=== PATIENT | male | born 1965 | race Caucasian/White ===

== ENCOUNTER 2019-08-30 20:54 | Inpatient (IN) | payer OTHER ==
[~2019-08-30] VITALS: Ht 167.6 cm; Wt 105.7 kg
[2019-08-30 22:09] VITALS: BP 123/68
[2019-08-30] MEDS ORDERED: ASA81BEC PO (22:50)
[2019-08-30] MEDS ORDERED: LIPITOR 20 MG T20 M1 PO (22:50)
[2019-08-30] MEDS ORDERED: VITAMIN B-121000 MC2 SUBQ (22:52)
[2019-08-30] MEDS ORDERED: NEXIUM40 MG PO (22:53)
[2019-08-30] MEDS ORDERED: FOLIC ACID1 MG PO (22:53)
[2019-08-30] MEDS ORDERED: FUROSEMIDE 40 M40 MG PO (22:54)
[2019-08-30] MEDS ORDERED: LATUDA20 MG PO (22:55)
[2019-08-30] MEDS ORDERED: LISINOPRIL-HCT1 EACH PO (22:58)
[2019-08-30] MEDS ORDERED: MOBIC7.5 MG PO (22:59)
[2019-08-30] MEDS ORDERED: METFORMIN HCL500 M3 PO (23:02)
[2019-08-30] MEDS ORDERED: SINGULAIR 10 MG10 MG PO (23:03)
[2019-08-30] MEDS ORDERED: TRAMADOL 50 MG50 MG PO (23:04)
[2019-08-30] MEDS ORDERED: VITAMIN D250000 UNIT PO (23:04)
[2019-08-30] MEDS ORDERED: FLONASE 0.05%50 MCG NASAL (23:05)
[2019-08-30] MEDS ORDERED: VENTOLIN HFA 1818 GM INH (23:06)
[2019-08-30] MEDS ORDERED: SYMBICORT80 MCG/4.1 INH (23:06)
[2019-08-30] MEDS ORDERED: BACTRIM DS TAB1 EAC1 PO (23:11)
[2019-08-31 00:29] VITALS: BP 112/58
--- NOTE | 2019-08-31 01:24 | NUR ---
Admission history and assessments completed. Care plan initiated.
[2019-08-31 02:30] LABS: ICTOTEST (BILI CONFIRMATORY) Positive (Negative); URINE BILIRUBIN 1+ (Negative); URINE BLOOD NEGATIVE (Negative); URINE CLARITY CLEAR; URINE COLOR YELLOW; URINE GLUCOSE-RANDOM* NEGATIVE (Negative); URINE KETONES NEGATIVE (Negative); URINE LEUKOCYTES-REFLEX NEGATIVE (Negative); URINE NITRITE-REFLEX NEGATIVE (Negative); URINE PROTEIN (DIPSTICK) 1+ (Negative); URINE SPECIFIC GRAVITY >= 1.030 (1.005-1.035); URINE UROBILINOGEN 0.2 E.U./dl (0.2-1.0)
[2019-08-31 02:50] LABS: HYALINE CASTS 0-3 Few /LPF (None Seen); MUCUS 4-6 Moderate strn/LPF (None Seen); SQUAMOUS >10 Many /LPF (0-3); URINE WBC-REFLEX None Seen /HPF (0-5)
[2019-08-31 02:51] LABS: BACTERIA-REFLEX 1-9 Few /HPF (None Seen); CRYSTALS None Seen /LPF (None Seen); URIC ACID CRYSTALS 0-3 Few /LPF (None Seen); URINE RBC 0-2 Rare /HPF (0-2)
[2019-08-31 04:05] VITALS: BP 110/62
[2019-08-31 04:49] LABS: HEMATOCRIT 35.2 % (42.0-52.0); HEMOGLOBIN 11.9 gm/dL (14.0-18.0); MCHC 33.7 g/dL (28.0-37.0); MCV 89.1 fL (80.0-100.0); RBC 3.95 mil/uL (4.50-6.00); RDW 13.6 % (10.5-14.5); WBC 6.7 thou/uL (4.0-11.0)
[2019-08-31 05:13] LABS: ANION GAP 13 mmol/L (7-16); BUN 34 mg/dL (7-18); CALCIUM 6.3 mg/dL (8.5-10.1); CHLORIDE 108 mmol/L (98-107); CHOLESTEROL 58 mg/dL (<200); CO2 18 mmol/L (21-32); CREATININE 3.7 mg/dL (0.7-1.3); GLUCOSE 108 mg/dL (74-106); HDL CHOLESTEROL 16 mg/dL (>40); LDL CHOLESTEROL 25 mg/dL (<100); POTASSIUM 3.1 mmol/L (3.5-5.1); SODIUM 139 mmol/L (136-145); TC:HDL 3.6 Ratio (Not establshd); TRIGLYCERIDE 89 mg/dL (<150); VLDL 18 mg/dL (<40)
[2019-08-31 05:14] LABS: SERUM ASSESSMENT Clear
--- NOTE | 2019-08-31 05:31 | NUR ---
Patient making slow progress towards outcome goals. Labs slowly improving. Urine output 1000 cc since admission, urine color improving from anamika to yellow. Chest pain resolved after Ultram. Troponin negative. Vital signs and rhythm stable. For renal, cardiology and GI consult today. No BM since admission.
[2019-08-31 08:24] VITALS: BP 119/73
--- NOTE | 2019-08-31 08:48 | NUR ---
PT ASSESSED BY DR. GRANADO AT BEDSIDE. PT DENIES CP OR SOA AT THIS TIME. WILL CONTINUE TO ASSESS.
--- NOTE | 2019-08-31 10:24 | EKG ---
[address] [address] ELECTROCARDIOGRAM REPORT Name: CHERYL COVARRUBIASEFFIE James Room #: 364-P ADM IN M.R.#: [id number] Admission: 08/30/19 Attend Phys: Robbie Bella MD Discharge: Date of : 65 Report #: [id number] THIS REPORT FOR: //name// [facility] Test Date: 2019-08-31 Test Time: 07:13:28 Pat Name: MARGARET COVARRUBIAS Department: Room: 364 P Gender: M [employer] Grinder: Monalisa PATHAK : 1965 Requested By: Rena Jarrell Order Number: [id number] MD: Jean-Paul Gan Measurements Intervals Lyons Rate: 92 P: 48 RI: 153 QRS: 26 QRSD: 96 T: 53 QT: 361 QTc: 447 Interpretive Statements Sinus rhythm No previous ECG available for comparison Electronically Signed On 08-31-2019 10:24:04 [employer]ETER [employer] by Jean-Paul Gan [email or web address] <ELECTRONICALLY SIGNED> By: Jean-Paul Gan MD 08/31/19 1024 0713 0713 Jean-Paul Gan MD /EPI
[2019-08-31 11:38] VITALS: BP 38/83
[2019-08-31 16:15] VITALS: BP 122/68
[2019-08-31 21:00] VITALS: BP 130/78
[2019-09-01 03:05] LABS: GLYCOHEMOGLOBIN (HGB A1C) 5.7 % (4.8-5.6)
--- NOTE | 2019-09-01 03:42 | NUR ---
Patient making slow progress towards outcome goals. Urine output improving. Labs improving. Vital signs any rhythm stable. No c/o chestpain. NPO after MN for nuclear stress test today. IVFluids infusing.
[2019-09-01 05:10] VITALS: BP 122/70
[2019-09-01 05:21] LABS: ALBUMIN 3.4 g/dL (3.4-5.0); PHOSPHORUS 2.1 mg/dL (2.5-4.9)
[2019-09-01 05:33] LABS: CREATININE 1.3 mg/dL (0.7-1.3); POTASSIUM 4.4 mmol/L (3.5-5.1)
[2019-09-01 05:34] LABS: CALCIUM 8.7 mg/dL (8.5-10.1)
[2019-09-01 07:46] VITALS: BP 142/84
--- NOTE | 2019-09-01 08:01 | HC ---
[facility] [address] [place] [address] CONSULTATION Name: MARGARET COVARRUBIAS Room #: 364-P [facility] IN ..#: [id number] Admission: 08/30/19 Attend Phys: Hardeep Morris MD Discharge: Date of : 65 Report #: [id number] THIS REPORT FOR: //name// CC: FAM unknown Robbie Bella DATE OF SERVICE: 08/31/2019 INDICATION: Chest pain. HISTORY OF PRESENT ILLNESS: This is a 53-year-old gentleman with a history of chronic tobacco use, COPD, hypertension, diabetes mellitus, congestive heart failure, peripheral neuropathy, and chronic back pains, presenting with nausea, diarrhea and chest pain. For the past few days, he has been experiencing abdominal pain with associated vomiting and diarrhea. He presented to the ER for an evaluation at [facility], noted to have a creatinine level 6.35. He was transferred to [facility] for further care. He reported an episode of left sternal chest discomfort last evening, nonradiating. It was not associated with any shortness of breath. The whole episode lasted for approximately one hour in duration. There were no alleviating or aggravating factors. He denies any history of palpitations, lightheadedness or orthopnea. PAST MEDICAL HISTORY: 1. Chronic tobacco use. 2. COPD. 3. Prior history of CHF on Lasix therapy. 4. Diabetes mellitus. 5. Hypertension. 6. Hypercholesterolemia. 7. Bipolar disorder. 8. Peripheral vascular disease. 9. Chronic back pains. ALLERGIES: None. MEDICATIONS: At home include aspirin once a day, Lipitor 20 mg daily, Nexium, Lasix 40 mg daily, lisinopril 10 mg daily, Mobic twice a day and metformin. SOCIAL HISTORY: Chronic tobacco use, 1 pack per day. FAMILY HISTORY: Negative for premature CAD. REVIEW OF SYSTEMS: A full 10-point review of systems performed. Only the pertinent positives and negatives are described in the HPI. [address] [address] CONSULTATION Name: MARGARET COVARRUBIAS Room #: 364-[facility] IN [facility].#: [id number] Admission: 08/30/19 Attend Phys: Hardeep Morris MD Discharge: Date of : 65 Report #: [id number] PHYSICAL EXAMINATION: VITAL SIGNS: Blood pressure is 120/70, heart rate is 100 beats per minute. GENERAL APPEARANCE: A mildly overweight male in no acute distress. HEENT: Normocephalic, atraumatic. Oral mucosa moist. NECK: Supple. LUNGS: Clear to auscultation. CARDIAC: Regular rate and rhythm. S1, S2 positive. ABDOMEN: Soft, nontender. EXTREMITIES: No cyanosis, trace edema. DIAGNOSTIC DATA: ECG reveals sinus rhythm. LABORATORY VALUES: Troponin levels are negative. Initial creatinine was 6.35, down to 3.7, hemoglobin is 11.9. ASSESSMENT AND PLAN: 1. Chest pain syndrome, the differential diagnosis includes ischemia, musculoskeletal, GI, etc. Given his significant risk factors, we will need to proceed with noninvasive stress testing. 2. Dyspnea on exertion, probably related to chronic obstructive pulmonary disease and chronic tobacco use. We will need an echo to rule out structural heart disease. 3. Acute kidney injury, as per Nephrology, probably related to prerenal and NSAID use. 4. Hypertension, follow up blood pressure at this time. Avoid ISSAC inhibitor in view of acute kidney injury. 5. Diabetes mellitus, check fingersticks. 6. Tobacco use, complete smoking cessation is advised. <ELECTRONICALLY SIGNED> By: Jean-Paul Gan MD 09/01/19 0801 0855 1100 Jean-Paul Gan MD /nt
--- NOTE | 2019-09-01 10:27 | 2DMMODE ---
[facility] [address] [place] [address] 2 D/M-MODE ECHOCARDIOGRAM Name: MARGARET COVARRUIBAS Room #: 364-P [facility] IN [facility]#: [id number] Admission: 08/30/19 Attend Phys: Hardeep Morris MD Discharge: Date of : 65 Report #: [id number] THIS REPORT FOR: //name// APPROVED REPORT Study performed: 09/01/2019 09:31:34 EXAM: Comprehensive 2D, Doppler, and color-flow Echocardiogram Patient Location: Echo lab Room #: 364 Status: routine BSA: 2.13 HR: 110 bpm BP: 142/84 mmHg Rhythm: Tachycardia Other Information Study Quality: Adequate Indications Congestive Heart Failure COPD Diabetes Hypertension/HDD HLD 2D Dimensions RVDd: 41.23 mm IVSd: 14.33 (7-11mm) LVOT Diam: 20.89 (18-24mm) LVDd: 42.67 mm PWd: 13.48 (7-11mm) Ascending Ao: 29.32 (22-36mm) LVDs: 30.05 (25-40mm) Aortic Root: 32.74 mm IVC: 20.00 mm Volumes Left Atrial Volume (Systole) Single Plane 4CH: 61.14 mL Single Plane 2CH: 74.77 mL LA ESV Index: 34.00 mL/m2 Aortic Valve AoV Peak Guille.: 1.71 m/s AO Peak Gr.: 11.70 mmHg LVOT Max P.05 mmHg LVOT Max V: 1.50 m/s SANJAY Vmax: 3.01 cm2 [facility] [address] [place] [address] 2 D/M-MODE ECHOCARDIOGRAM Name: MARGARET COVARRUBIAS Room #: 364-P [facility]#: [id number] Admission: 08/30/19 Attend Phys: Hardeep Morris MD Discharge: Date of : 65 Report #: [id number] Mitral Valve E/A Ratio: 0.8 MV Decel. Time: 201.22 ms MV E Max Guille.: 1.25 m/s MV A Guille.: 1.49 m/s MV PHT: 58.35 ms IVRT: 69.20 ms Pulmonary Valve PV Peak Guille.: 1.50 m/s PV Peak Gr.: 9.07 mmHg Pulmonary Vein P Vein S: 0.94 m/s P Vein A: 0.41 m/s P Vein D: 0.56 m/s P Vein A Dur.: 66.9 msec P Vein S/D Ratio: 1.68 Tricuspid Valve TR Peak Guille.: 3.32 m/s RAP Estimate: 5.00 mmHg TR Peak Gr.: 44.04 mmHg PA Pressure: 49.00 mmHg Left Ventricle The left ventricle is normal size. Mild concentric left ventricular hypertrophy. The left ventricular systolic function is normal. The left ventricular ejection fraction is within the normal range. LVEF is 60-65%. Mild diastolic dysfunction is present (impaired relaxation pattern). Right Ventricle Right ventricle is at the upper limits of normal. The right ventricular systolic function is normal. Atria The left atrium size is normal. Right atrium is mildly dilated. Aortic Valve The aortic valve is normal in structure. No aortic regurgitation is present. There is no aortic valvular stenosis. Mitral Valve The mitral valve is normal in structure. Trace mitral regurgitation. No evidence of mitral valve stenosis. Tricuspid Valve The tricuspid valve is normal in structure. Trace to mild tricuspid [facility] [address] [place] [address] 2 D/M-MODE ECHOCARDIOGRAM Name: MARGARET COVARRUBIAS Erika Room #: 364-P [facility] IN [facility]#: [id number] Admission: 08/30/19 Attend Phys: Hardeep Morris MD Discharge: Date of : 65 Report #: [id number] regurgitation. PAP is estimated at 49 mmHg. Pulmonic Valve The pulmonary valve is normal in structure. There is no pulmonic valvular regurgitation. Great Vessels The aortic root is normal in size. IVC is normal in size and collapses >50% with inspiration. Pericardium There is no pericardial effusion. <Conclusion> The left ventricle is normal size. Mild concentric left ventricular hypertrophy. The left ventricular systolic function is normal. Mild diastolic dysfunction is present (impaired relaxation pattern). Right ventricle is at the upper limits of normal. The left atrium size is normal. The aortic valve is normal in structure. Trace mitral regurgitation. Trace to mild tricuspid regurgitation. PAP is estimated at 49 mmHg. <ELECTRONICALLY SIGNED> By: Jean-Paul Gan MD 09/01/19 1027 1027 1027 Jean-Paul Gan MD /INF
[2019-09-01 12:06] VITALS: BP 160/83
--- NOTE | 2019-09-01 12:36 | NUR ---
INITIAL ASSESSMENT: Received consult. SW reviewed chart and spoke with nursing and attending physician. Pt was admitted from home due to BRAD/nausea and vomiting. GI and cardio consulted. Pt currently off the unit having a nuclear stress test. SW met with pt s at bedside. Introduced role of SW. Pt is normally alert/orientated x 4. Pt and live at home [facility]. Prior to admission, pt was independent with ADLs. No use of DME. No hx of service or post acute placement. Pt s PCP is SHARIF Howell in [place]. Plan is for pt to dc home when medically stable. No SW discharge needs identified at this this, but is available to assist should needs arise.
[2019-09-01 15:59] VITALS: BP 135/84
--- NOTE | 2019-09-01 17:17 | NUR ---
pt is A&OX3, PT is continuing iv fliud and bs management, pt's vs and bs are stable, pt does not have n/v and diarrhea today.
[2019-09-01 20:05] VITALS: BP 150/91
[2019-09-02 03:46] VITALS: BP 152/84
[2019-09-02 05:14] LABS: HEMATOCRIT 38.3 % (42.0-52.0); HEMOGLOBIN 12.8 gm/dL (14.0-18.0); MCH 30.1 pg (26.0-34.0); MCHC 33.3 g/dL (28.0-37.0); MCV 90.4 fL (80.0-100.0); RBC 4.24 mil/uL (4.50-6.00); RDW 13.7 % (10.5-14.5); WBC 9.4 thou/uL (4.0-11.0)
[2019-09-02 05:22] LABS: ALBUMIN 3.4 g/dL (3.4-5.0); CALCIUM 8.8 mg/dL (8.5-10.1); CREATININE 0.8 mg/dL (0.7-1.3); PHOSPHORUS 2.5 mg/dL (2.5-4.9); POTASSIUM 4.2 mmol/L (3.5-5.1)
--- NOTE | 2019-09-02 06:23 | NUR ---
Pt. stated he slept well during the night. Tolerating room air well. Denies any pain. No nausea,vomiting or diarrhea. Pt. is scheduled for 2nd part of stress test today. IV fluids infusing.Voiding well per urinal. Making progress towards care plan goals.
--- NOTE | 2019-09-02 06:24 | HC ---
[facility] [address] [place] [address] CONSULTATION Name: MARGARET COVARRUBIAS Room #: 364-P ADM IN ..#: [id number] Admission: 08/30/19 Attend Phys: Hardeep Morris MD Discharge: Date of : 65 Report #: [id number] THIS REPORT FOR: //name// CC: FAM unknown Robbie Bella REASON FOR PRESENTATION: Nausea and vomiting. REASON FOR CONSULTATION: Acute kidney injury. HISTORY OF PRESENT ILLNESS: A 53 year old with past medical history of diabetes mellitus who is maintained on metformin. He is also known to have chronic back pain, hyperlipidemia, COPD. It does look like that he also carries a bipolar disorder and was recently started on Latuda. The patient was evaluated by his primary care physician on 4th of this month and was started on Bactrim for urinary tract infection. He presented reporting that he has been having some nausea and vomiting for the last few days. He visited with his primary care physician as stated above. He was also evaluated at [facility] and was found to have a creatinine of 6.3. BUN was 43. Sodium was 143. The patient also admits to daily intake of Aleve, daily intake of meloxicam. He does not have any obstructive symptoms. No reported chest pain or palpitation. He did have some fever and chills. No reported hematemesis or melena. No previous similar episodes. No abdominal pain. MEDICATIONS: 1. Aspirin. 2. Lasix. 3. Latuda. 4. Lisinopril. 5. Metformin. 6. Aleve. 7. Sulfamethoxazole and trimethoprim. 8. Meloxicam. 9. Albuterol. PAST MEDICAL HISTORY: 1. Bipolar disorder. 2. Tobacco abuse. 3. Diabetes mellitus. 4. Thyroid gland problems. 5. Appendectomy. 6. Cholecystectomy. 7. Vitamin B12 deficiency. FAMILY HISTORY: His mother has diabetes mellitus and heart failure. SOCIAL HISTORY: Denies drug or alcohol abuse. He continues to smoke. He is [facility] [address] [place] [address] CONSULTATION Name: MARGARET COVARRUBIAS Room #: 364-P [facility] IN [facility].#: [id number] Admission: 08/30/19 Attend Phys: Hardeep Morris MD Discharge: Date of : 65 Report #: [id number]. REVIEW OF SYSTEMS: GENERAL: Significant for weakness, fever or chills. CARDIOVASCULAR: No chest pain or palpitation. PULMONARY: No cough or hemoptysis. GASTROINTESTINAL: As per the history of present illness. GENITOURINARY: No frequency, no urgency. SKIN: No rash or ulcerations. NEUROLOGICAL: Significant for weakness, but no seizure. 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 HEMATOLOGICAL: No epistaxis. No bruises. PHYSICAL EXAMINATION: GENERAL: He is alert, oriented, in no apparent distress. VITAL SIGNS: Blood pressure is 110/62, temperature is 36.8. HEAD AND NECK: No jugular venous distention. CHEST: Clear to auscultation bilaterally with no crackles. CARDIOVASCULAR: Regular S1, S2 with no rub detected. No murmurs. ABDOMEN: Soft, protuberant. No guarding, no rigidity. Active bowel sounds. LOWER EXTREMITIES: No edema with intact peripheral pulses. LABORATORY DATA: From today and from his [facility] were reviewed. Creatinine is now down to 3.7. Potassium is 3.1, carbon dioxide is 18. IMPRESSION AND PLAN: 1. Acute kidney injury due to Bactrim, Aleve, meloxicam. 2. Hypokalemia. 3. Diabetes mellitus. 4. Hypertension. 5. This is all related to the above-mentioned medication. Creatinine seems to be improving. Continue with IV fluid. 6. Continue to hold all of the above-mentioned medications including metformin. 7. Expect his kidney function to continue to improve to baseline. <ELECTRONICALLY SIGNED> By: Deann Betancourt MD 09/02/19 0624 0636 0743 Deann Betancourt MD /nt
[2019-09-02 08:09] VITALS: BP 145/86
[2019-09-02 11:18] VITALS: BP 125/97
[2019-09-02 13:50] VITALS: BP 125/97
--- NOTE | 2019-09-02 14:24 | NUR ---
DISCHARGE NOTE: SW reviewed chart and spoke with nursing and attending physician. Pt had part 2 of stress test and is medically stable for discharge home. No discharge needs identified. Pt's family will provide transportation home. No additional SW needs identified at this time, but is available to assist should needs arise.
--- NOTE | 2019-09-02 15:39 | NUR ---
pt is A&OX3, PT's vs and o2sat are stable, pt denies pain, n/v , diarrhea and sob, PT has meeting care plan goals, PT d/c to home at 1420pm, pt's stays with him, RN has giving D/C teaching, pt and pt's both understander well,
== END 2019-09-02 14:23 | disposition home or self-care (01) | DRG 640 ==
LOC: 3W 20:54 → ENTRNSPT 09-02 14:13 → 3W 09-02 14:23
PROVIDERS: Hospitalist; Nurse Practitioner; Nurse Practitioner Family; ADMIT Hospitalist
DX: E87.1 Hypo-osmolality and hyponatremia (principal); N17.0 Acute kidney failure with tubular necrosis; J44.9 Chronic obstructive pulmonary disease, unspecified; I50.9 Heart failure, unspecified; F17.210 Nicotine dependence, cigarettes, uncomplicated; E11.42 Type 2 diabetes mellitus with diabetic polyneuropathy; M54.9 Dorsalgia, unspecified; E87.6 Hypokalemia; E78.00 Pure hypercholesterolemia, unspecified; E11.51 Type 2 diabetes mellitus with diabetic peripheral angiopathy without gangrene; E78.5 Hyperlipidemia, unspecified; K21.9 Gastro-esophageal reflux disease without esophagitis; G89.29 Other chronic pain; D64.9 Anemia, unspecified; R63.4 Abnormal weight loss; T39.395A Adverse effect of other nonsteroidal anti-inflammatory drugs [NSAID], initial encounter; T36.8X5A Adverse effect of other systemic antibiotics, initial encounter; F31.9 Bipolar disorder, unspecified; F41.9 Anxiety disorder, unspecified; Z87.440 Personal history of urinary (tract) infections; Z82.49 Family history of ischemic heart disease and other diseases of the circulatory system; Z28.21 Immunization not carried out because of patient refusal; Z79.899 Other long term (current) drug therapy; Z79.82 Long term (current) use of aspirin; Z79.84 Long term (current) use of oral hypoglycemic drugs; Z90.89 Acquired absence of other organs; Z90.49 Acquired absence of other specified parts of digestive tract; Z83.3 Family history of diabetes mellitus; Z83.49 Family history of other endocrine, nutritional and metabolic diseases; Z68.37 Body mass index [BMI] 37.0-37.9, adult; Y92.89 Other specified places as the place of occurrence of the external cause
CPT/HCPCS: 10779; 10879